=== PATIENT | female | born 1990 | race Caucasian/White ===

== ENCOUNTER 2022-04-12 06:11 | Inpatient (IN) ==
[2022-04-12] MEDS ORDERED: FAMOTIDINE 20 MG/2 ML VIAL IV PRN (06:31)
[2022-04-12] MEDS ORDERED: ACETAMINOPHEN 325 MG TABLET PO PRN (06:31)
[2022-04-12] MEDS ORDERED: BUTORPHANOL 2 MG/ML VIAL IV PRN (06:31)
[2022-04-12] MEDS ORDERED: TRANEXAMIC ACID 1,000 MG in SODIUM CHLORIDE 0.9% 100 ML IV PRN (06:31)
[2022-04-12] MEDS ORDERED: OXYTOCIN/LR 20 UNIT/1,000 ML BAG IV ONE ×2 (06:31→21:27)
[2022-04-12] MEDS ORDERED: CARBOPROST TROMETHAMINE 250 MCG/ML AMP IM PRN (06:31)
[2022-04-12] MEDS ORDERED: LACTATED RINGERS 500 ML IV PRN (06:31)
[2022-04-12] MEDS ORDERED: MEPERIDINE 50 MG/1 ML VIAL IV PRN ×2 (06:31)
[2022-04-12] MEDS ORDERED: BUTORPHANOL 1 MG/ML VIAL IV PRN (06:31)
[2022-04-12] MEDS ORDERED: ONDANSETRON 4 MG/2 ML VIAL IV PRN (06:31)
[2022-04-12] MEDS ORDERED: METHYLERGONOVINE 0.2 MG/1 ML AMP IM PRN (06:31)
[2022-04-12] MEDS ORDERED: miSOPROStoL 200 MCG TABLET RECTAL PRN (06:31)
[2022-04-12] MEDS: LACTATED RINGERS 1,000 ML IV SCH ×2 (06:40→11:56)
[2022-04-12 06:58] LABS: Basophils % 0.2 % (0.0-0.8); Eosinophils # 0.1 10*3/uL (0.0-0.87); Eosinophils % 0.7 % (0.00-10.9); Hematocrit 33.3 VOL% (35.7-47.0); Hemoglobin 11.4 GM/DL (12.0-16.0); Immature Granulocytes % 0.8 %; Immature Granulocytes Absolute 0.07 #; Lymphocytes # 2.3 10*3/uL (1.4-4.0); Lymphocytes % 26.6 % (21.3-54.2); Mean Corpuscular HGB Conc 34.2 GM/DL (32-36); Mean Corpuscular Volume 93.5 FL (87-102); Mean Platelet Volume 9.7 FL (9.6-12.0); Monocytes # 0.6 10*3/uL (0.11-0.8); Monocytes % 6.3 % (1.7-12.7); Neutrophils % 65.4 % (38.7-73.9); Platelet Count 243 T/CUMM (130-400); Red Blood Count 3.56 MC/CUMM (3.8-5.5); Red Cell Distribution Width 13.8 % (9.3-17.3); White Blood Count 8.8 T/CUMM (4-12)
[2022-04-12 07:14] LABS: Alanine Aminotransferase 17 U/L (13-56); Albumin 2.6 G/DL (3.4-5.0); Alkaline Phosphatase 114 U/L (45-117); Aspartate Amino Transferase 15 U/L (0-37); Bilirubin,Total < 0.39 MG/DL (0.20-1.00); Blood Urea Nitrogen 10 MG/DL (7-18); Calcium 8.8 MG/DL (8.5-10.1); Carbon Dioxide 21 MMOL/L (21-32); Chloride 112 MMOL/L (98-107); Glucose 99 MG/DL (74-106); Osmolality,Calculated 277.4 MOS/KG (273-304); Potassium 3.9 MMOL/L (3.5-5.1); Sodium 140 MMOL/L (136-145); Total Protein 6.2 G/DL (6.4-8.2)
[2022-04-12] MEDS ORDERED: LACTATED RINGERS 1,000 ML IV ONE (09:02)
[2022-04-12] MEDS ORDERED: FAMOTIDINE 20 MG TABLET PO ONE (09:02)
[2022-04-12] MEDS ORDERED: CITRIC ACID/SODIUM CITRATE 30 ML UDCUP PO ONE (09:02)
[2022-04-12] MEDS ORDERED: ONDANSETRON 4 MG/2 ML VIAL IV ONE (09:03)
[2022-04-12] MEDS ORDERED: NALOXONE 0.4 MG/ML VIAL IV PRN (09:03)
[2022-04-12] MEDS ORDERED: ePHEDrine 50 MG/ML VIAL IV PRN (09:03)
[2022-04-12] MEDS ORDERED: PROMETHAZINE 25 MG/1 ML VIAL IM ONE (09:03)
[2022-04-12] MEDS ORDERED: diphenhydrAMINE 50 MG/1 ML VIAL IV PRN ×2 (09:03)
[2022-04-12] MEDS ORDERED: hydrOXYzine HCL 25 MG/1 ML VIAL IM PRN (09:03)
[2022-04-12] MEDS ORDERED: fentaNYL 2 MCG/ROPIV 0.2% EPID 100 ML EPIDURAL SCH (09:30)
[2022-04-12] MEDS: OXYTOCIN/LR 20 UNIT/1,000 ML BAG IV SCH ×2 (09:31→19:14)
[2022-04-12 11:47] LABS: Bacteria,Urine Occasional /HPF (Few); Bilirubin,Urine Small mg/dL (Negative); Blood, Urine Negative (Negative); Glucose,Urine (UA) Negative (Negative); Ketones,Urine Negative (Negative); Mucus,Urine Occasional /LPF (Occasional); Nitrite,Urine Negative (Negative); Protein,Urine Negative (Negative); RBC,Urine 1 /HPF (0-4); Squamous Epithelial Cell,Urine Occasional /HPF (0-10); Urine Appearance Clear (Clear); Urine Color Yellow (Yellow); Urine Specific Gravity 1.015 (1.001-1.035); Urine Urobilinogen 0.2 eU/dL (<2.0)
[2022-04-12] MEDS ORDERED: ACETAMINOPHEN 500 MG TABLET PO ONE ×2 (14:29→21:00)
[2022-04-12 16:52] LABS: Cord Venous Blood HCO3 20.3 MMOL/L; Cord Venous Blood PCO2 43.3 MMHG; Cord Venous Blood PO2 23.8
[2022-04-12] MEDS ORDERED: LANOLIN 50% CREAM 0.3 OZ TUBE TOP PRN (21:27)
[2022-04-12] MEDS ORDERED: RHO(D) IMMUNE GLOBULIN 300 MCG SYRINGE IM ONE (21:27)
[2022-04-12] MEDS ORDERED: HYDROCORTISONE 2.5% RECTAL CREAM 30 GM TUBE TOP PRN (21:27)
[2022-04-12] MEDS ORDERED: oxyCODONE/ACETAMINOPHEN 5-325 MG TABLET PO PRN ×2 (21:27)
[2022-04-12] MEDS ORDERED: DIPH/TET/ACEL PERT BOOSTER VACCINE 0.5 ML VIAL IM ONE (21:27)
[2022-04-12] MEDS ORDERED: BISACODYL 10 MG SUPP RECTAL PRN (21:27)
[2022-04-12] MEDS ORDERED: BENZOCAINE 20%/MENTHOL 0.5% SPRAY 56 GM CAN TOP PRN (21:27)
[2022-04-12] MEDS ORDERED: MEASLES/MUMPS/RUBELLA VACCINE 0.5 ML VIAL SUBCUT ONE (21:27)
[2022-04-12] MEDS ORDERED: WITCH HAZEL PADS 100/JAR TOP PRN (21:27)
[2022-04-12] MEDS: IBUPROFEN 800 MG TABLET PO PRN (22:01)
[2022-04-13] MEDS: DOCUSATE SODIUM 100 MG CAPSULE PO SCH ×3 (00:41→21:50)
[2022-04-13 06:03] LABS: Basophils % 0.1 % (0.0-0.8); Eosinophils # 0.1 10*3/uL (0.0-0.87); Eosinophils % 0.8 % (0.00-10.9); Immature Granulocytes % 0.6 %; Immature Granulocytes Absolute 0.08 #; Lymphocytes # 2.5 10*3/uL (1.4-4.0); Lymphocytes % 19.4 % (21.3-54.2); Mean Corpuscular HGB Conc 33.3 GM/DL (32-36); Mean Corpuscular Volume 96.5 FL (87-102); Mean Platelet Volume 9.8 FL (9.6-12.0); Monocytes # 0.8 10*3/uL (0.11-0.8); Monocytes % 6.4 % (1.7-12.7); Neutrophils % 72.7 % (38.7-73.9); Platelet Count 187 T/CUMM (130-400); Red Blood Count 3.11 MC/CUMM (3.8-5.5); Red Cell Distribution Width 13.9 % (9.3-17.3); White Blood Count 13.1 T/CUMM (4-12)
[2022-04-13] MEDS: IBUPROFEN 800 MG TABLET PO PRN ×3 (11:05→22:42)
[2022-04-13] MEDS ORDERED: ONDANSETRON ODT 4 MG TABLET PO PRN (13:59)
[2022-04-14 07:21] VITALS: BP 117/67
[2022-04-14] MEDS: IBUPROFEN 800 MG TABLET PO PRN (08:27)
[2022-04-14] MEDS ORDERED: DIPH/TET/ACEL PERT BOOSTER VACCINE 0.5 ML VIAL IM ONE (09:37)
[2022-04-14] MEDS: DOCUSATE SODIUM 100 MG CAPSULE PO SCH (10:22)
== END 2022-04-14 17:40 | disposition home or self-care (01) | DRG 807 ==
LOC: N.LD 06:11 → N.OB 21:26
PROVIDERS: ADMIT Obstetrics & Gynecology; ATTEND Obstetrics & Gynecology